=== PATIENT | male | born 1950 | race Caucasian/White ===

== ENCOUNTER 2017-09-22 05:19 | Inpatient (IN) | payer MEDICARE ==
[2017-09-22] MEDS ORDERED: Ondansetron HCl/PF 4 MG/2 ML Vial ONE (06:07)
[2017-09-22 06:32] LABS: Anion Gap 16 mmol/L (10-20); BUN (Urea Nitrogen) 20 mg/dL (8.4-25.7); Calc. Creatinine Clearance 0 mL/min (70-130); Calcium 8.9 mg/dL (7.8-10.44); Carbon Dioxide 20 mmol/L (23-31); Chloride 92 mmol/L (98-107); Estimated GFR-MDRD 47; Glucose 87 mg/dL (80-115); Potassium 3.8 mmol/L (3.5-5.1); Sodium 124 mmol/L (136-145)
[2017-09-22] MEDS ORDERED: HYDROmorphone 0.5 MG/0.5 ML SYRINGE ONE (06:32)
[2017-09-22] MEDS ORDERED: Promethazine HCl 25 MG/ML VIAL ONE (07:48)
--- NOTE | 2017-09-22 07:56 | CT ---
CT ABDOMEN WITH CONTRAST CT PELVIS WITH CONTRAST: DATE: 09/22/16 TIME: 0729 HOURS HISTORY: 66-year-old male with diffuse, generalized abdominal pain, and nausea. COMPARISON: 09/20/17. TECHNIQUE: IV injection of iodinated contrast media: 70 mL [id number]. Oral contrast media: Administered. FINDINGS: The right kidney is absent. There are surgical clips in the right retroperitoneum. There are numerous mildly enlarged bilateral paraaortic lymph nodes. No abdominal aortic aneurysm. No free fluid or h[place] e air within the abdominal cavity or pelvic cavity. Lung bases are clear. No major pathology identifi ed involving left kidney, adrenals, pancreas, liver, or spleen. No small bowel dilation. Multiple div erticula throughout the descending colon and sigmoid colon. There is a region of pericolonic mild fat stranding at the junction between the descending colon and sigmoid colon, which has improved since t he previous CT. Urinary bladder is distended, but has thin, normal shepard. Grade I anterolisthesis of L5 on S1 due to bilateral L5 spondylolysis. Appendix is normal, positioned in right upper quadrant of the abdomen secondary to high position of the cecum. IMPRESSION: 1. Improving mild colonic diverticulitis at the junction between the descending and sigmoid colon, i n the left lower quadrant of the abdomen. 2. No evidence of abscess. 3. Status post right nephrectomy. 4. Nonspecific mildly enlarged paraaortic retroperitoneal lymph nodes. 5. Grade I spondylolisthesis at L5-S1 due to bilateral L5 spondylolysis. JNPrachi POS: CB
[2017-09-22] MEDS ORDERED: metroNIDAZOLE 500 MG/100 ML BAG ONE (08:15)
--- NOTE | 2017-09-22 10:06 | HP ---
PRIMARY CARE PHYSICIAN: Roger Chang M.D. REASON FOR ADMISSION: Acute diverticulitis, acute kidney failure, hyponatremia, failure of outpatien t therapy. HISTORY OF PRESENT ILLNESS: A 66-year-old male who has history of kidney tumor treated with radiatio n, surgery, and chemotherapy who initially went to [facility] for evaluation of abdo petty pain. Patient reports that abdominal pain started on , which was lower abdominal in na ture, crampy in nature, 8/10 in intensity, which was gradually getting worse. Before this pain start ed, patient was having constipation. The patient went to see primary care physician on Friday. At t hat time, patient was instructed to come to the ER if abdominal pain gets worse. Patient was not giv en any antibiotic therapy at that time, the patient did not improve at all and he was having worsenin g abdominal pain which was more crampy and more intense about 8/10 in intensity and he was not able t o handle his pain and that is why he went to emergency room on Friday. At that time, the patient h ad CT of the abdomen and pelvis and patient was given antibiotic therapy with Cipro and Flagyl for di verticulitis. After that, patient continued to have severe abdominal pain. He was not able to tolerate his oral me dication. He took only few medications, but because of nausea and abdominal pain, he was not tolerat ing any medication and that is why he went again to [facility] where he was given pa in medication with morphine, Toradol, Zofran and subsequently he was transferred to our hospital. Today in our emergency room, patient had repeat CT of the abdomen and pelvis which showing diverticul itis. His sodium is also dropping and he appeared more dehydrated. He was uncomfortable from his lo wer abdominal pain and that is why we decided to keep this patient in the hospital for IV antibiotic therapy. 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 At that time, he was found with diverticulosis. Patient denies any fever or chills. He denies any hematoche valentina, melena or fever. He denies any UTI symptoms. He denies any weight loss or headache, chest pain, palpitation or dizziness. REVIEW OF SYSTEMS: The following complete review of systems was negative, unless otherwise mentioned in the HPI or below: Constitutional: Weight loss or gain, ability to conduct usual activities. Skin: Rash, itching. Eyes: Double vision, pain. ENT/Mouth: Nose bleeding, neck stiffness, pain, tenderness. Cardiovascular: Palpitations, dyspnea on exertion, orthopnea. Respiratory: Shortness of breath, wheezing, cough, hemoptysis, fever or night sweats. Gastrointestinal: Poor appetite, abdominal pain, heartburn, nausea, vomiting, constipation, or diarr hea. Genitourinary: Urgency, frequency, dysuria, nocturia. Musculoskeletal: Pain, swelling. Neurologic/Psychiatric: Anxiety, depression. Allergy/Immunologic: Skin rash, bleeding tendency. Please see my HPI for pertinent positive and negative. All other review of systems reviewed and nega tive except as mentioned in the HPI. ALLERGIES: No known drug allergies. CURRENT HOME MEDICATIONS: Cardizem-CD 120 mg p.o. daily, Prilosec 40 mg p.o. daily, Atarax 10 mg q.6 hourly p.r.n. PAST MEDICAL HISTORY: Hypertension, history of kidney tumor treated with chemoradiation and surgery, gastroesophageal reflux disease, diverticulosis. PAST SURGICAL HISTORY: Tonsillectomy, back surgery, neck surgery, nephrectomy on right side, colonos copy on 08/20/2017, MediPort placement. PAST PSYCHIATRIC HISTORY: Reviewed and negative. SOCIAL HISTORY: Patient is a former smoker. He quit smoking last year in October. He denies any a lcohol abuse. He denies any other illicit drug abuse. He is retired and lives at home. FAMILY HISTORY: No strong family history of premature coronary artery disease, stroke or cancer. EMERGENCY ROOM COURSE: Patient has received Levaquin 750 mg, Flagyl 500 mg, Phenergan 12.5 mg, Dilau did 1 mg, Zofran 8 mg, and IV fluid 1 liter. PHYSICAL EXAMINATION: VITAL SIGNS: On arrival, blood pressure 186/82, pulse 72, respiratory rate 22, temperature 97.8, sat uration 98% on room air, weight 79.3 kilograms. GENERAL: Patient is currently alert, awake, in moderate distress due to abdominal pain. He is restl ess. HEAD: Normocephalic, atraumatic. EYES: Pupils round, reactive to light. Extraocular muscle intact. ENT: Dry mucous membranes, no oral lesions, no pharyngeal erythema, no exudate. NECK: Supple, no JVD, no thyromegaly, no carotid bruit, no meningeal signs of irritation. LUNGS: Clear to auscultation without any rhonchi or rales. CARDIAC: S1, S2 regular. No murmur, no gallop, no rub. ABDOMEN: Diffuse lower abdominal tenderness with guarding, no peritoneal signs, no distention. Sinai l sounds present. No organomegaly, no mass. BACK: Examination unremarkable, no CVA tenderness. EXTREMITIES: Upper extremity passive movements of all joints are normal. Lower extremities: No yane ma. Good peripheral pulsation. SKIN: No skin rash. HEMATOLOGICAL SYSTEM: No lymphadenopathy. PSYCHIATRIC: Normal affect. NEUROLOGIC: Nonfocal examination. IMAGING DATA AND SIGNIFICANT LABORATORY DATA: EKG normal sinus rhythm, normal axis, nonspecific ST-T changes. CT abdomen and pelvis done today as well as I reviewed CT of the abdomen and pelvis which was done on Friday showing colonic diverticulitis at the junction of the descending and sigmoid col on, grade I anterolisthesis of L5-S1, colonic diverticulosis. Chest x-ray based on my review, no acu te cardiopulmonary process. CBC: WBC 6.9, hemoglobin 13.2, platelets 175. BMP: Sodium 144, potass ium 3.8, chloride 92, BUN 20, creatinine 1.48, calcium 8.9, lactic acid 2.4. LFT: AST 15, ALT 13, a lkaline phosphatase 104, albumin 4.0, lipase 27. Urinalysis unremarkable. ASSESSMENT AND PLAN/IMPRESSION: 1. Acute diverticulitis of descending and sigmoid colon. The patient has diffuse lower abdominal di scomfort. His pain is unbearable and he is not able to handle his pain and he is not tolerating p.o. medication and that is why he will require admission. We will continue Levaquin 500 mg IV daily and Flagyl 500 mg IV q.8 hourly, probiotics, Florastor 250 mg p.o. daily. We will control his pain with morphine 4 mg every 3 hourly p.r.n. basis. Patient already had a colonoscopy in 08/2017. We will n otify Dr. Tineo about the patient's admission. 2. Failure of outpatient therapy. This patient is not able to take Cipro and Flagyl orally because of nausea and he has failure of treatment, he has worsening of abdominal pain and that is why he will require inpatient hospitalization. 3. Hyponatremia and hypochloremia with mild metabolic acidosis, likely due to dehydration and inabil ity to tolerate p.o. Patient did not have any oral intake since Friday, Friday, and that is why he will require IV fluid for hydration and will continue with NS 125 mL per hour and we will monitor el ectrolytes and labs. 4. Lactic acidosis, resolved, likely due to dehydration. 5. Acute kidney failure. The patient will be given IV fluid with NS at 125 mL per hour and will rep eat BMP tomorrow. 6. Hypertension. We will continue Cardizem-CD 120 mg p.o. daily. 7. Gastroesophageal reflux disease. We will continue Protonix 40 mg IV daily. 8. History of renal cell carcinoma treated with nephrectomy, chemotherapy. 9. Deep venous thrombosis prophylaxis, heparin 5000 units subcu twice daily. 10. Gastrointestinal prophylaxis, Protonix 40 mg IV daily. 11. Code status: The patient is FULL CODE. Patient does not have a surrogate decision maker. Disposition plan based on clinical course. We are expecting patient's stay in the hospital more than 2 midnights. Plan of care discussed with the patient and his family member at bedside in the emerge ncy room.
[2017-09-22] MEDS ORDERED: Senokot 8.6 MG TAB PO PRN (10:10)
[2017-09-22] MEDS ORDERED: hydrALAZINE 20 MG/ML VIAL SLOW IVP PRN (10:10)
[2017-09-22] MEDS ORDERED: Loratadine 10 MG TAB PO PRN (10:10)
[2017-09-22] MEDS ORDERED: Ondansetron ODT 4 MG TAB PO PRN (10:10)
[2017-09-22] MEDS ORDERED: Chloraseptic Spray 180 ml Bottle PO PRN (10:10)
[2017-09-22] MEDS ORDERED: Mag-Al 1200 mg/1200 mg/30 ML UDCUP PO PRN (10:10)
[2017-09-22] MEDS ORDERED: Eucerin (Mineral Oil/Petrolatum,White) 30 gm Jar TOP PRN (10:10)
[2017-09-22] MEDS ORDERED: Sodium Chloride 0.65% Nasal 44 ML BOT EA NARE PRN (10:10)
[2017-09-22] MEDS ORDERED: Diabetic Tussin 200 MG/10 ML UDCUP PO PRN (10:10)
[2017-09-22] MEDS ORDERED: Loperamide HCl 2 MG CAP PO PRN (10:10)
[2017-09-22] MEDS ORDERED: Artificial Tears 18 DROP/0.9 ML EA EYE PRN (10:10)
[2017-09-22] MEDS ORDERED: Labetalol HCl 100 MG/20 ML VIAL SLOW IVP PRN (10:10)
[2017-09-22] MEDS ORDERED: Milk Of Magnesia 30 ML UDCUP PO PRN (10:10)
[2017-09-22] MEDS ORDERED: Zolpidem Tartrate 5 MG TAB PO PRN (10:10)
[2017-09-22 10:11] VITALS: BMI 26.6
[2017-09-22] MEDS ORDERED: Morphine 5 MG/ML SYRINGE SLOW IVP PRN (11:29)
[2017-09-22] MEDS: Sodium Chloride 0.9% 1,000 ML IV SCH ×2 (12:23→19:41)
[2017-09-22] MEDS: HYDROcodone/Acetaminophen 10/325 mg Tablet PO PRN ×2 (14:00→19:38)
[2017-09-22] MEDS: metroNIDAZOLE 500 MG in Premix Bag 1 BAG IVPB SCH ×2 (16:08→23:31)
[2017-09-22] MEDS ORDERED: ISOVUE-370 76%-LOCM 1 ML ONE (16:19)
[2017-09-22] MEDS: Lorazepam 1 MG TAB PO PRN (16:59)
[2017-09-22] MEDS: Heparin 5,000 UNITS/ML VIAL SC SCH (19:37)
[2017-09-22] MEDS: Ondansetron HCl/PF 4 MG/2 ML Vial IVP PRN (19:40)
[2017-09-23] MEDS: Lorazepam 1 MG TAB PO PRN (02:41)
[2017-09-23] MEDS: HYDROcodone/Acetaminophen 10/325 mg Tablet PO PRN ×2 (02:41→16:50)
[2017-09-23] MEDS: Ondansetron HCl/PF 4 MG/2 ML Vial IVP PRN (02:41)
[2017-09-23] MEDS: Sodium Chloride 0.9% 1,000 ML IV SCH ×3 (04:56→21:01)
[2017-09-23 05:37] LABS: #Basophils 0.1 thou/uL (0.0-0.2); #Eosinphils 0.2 thou/uL (0.0-0.7); #Lymphocytes 1.2 thou/uL (1.20-3.40); #Monocytes 0.7 thou/uL (0.11-0.59); #Neutrophils 3.7 thou/uL (1.40-6.50); %Basophils 1.1 % (0.0-1.0); %Eosinophils 2.9 % (0.0-10.0); %Lymphocytes 20.9 % (21.0-51.0); Hemoglobin 13.4 g/dL (14.0-18.0); Mean Corpuscular HGB CONC 32.7 g/dL (32.0-36.0); Mean Corpuscular Hemoglobin 30.8 pg (27.0-31.0); Mean Corpuscular Volume 94.2 fl (80.0-94.0); Mean Platelet Volume 6.8 fL (7.4-10.4); Platelet Count 186 thou/uL (130-400); RBC Distribution Width 12.4 % (11.5-14.5); Red Blood Cell (RBC) Count 4.35 mill/uL (4.70-6.10); White Blood Cell (WBC) Count 5.9 thou/uL (4.8-10.8)
[2017-09-23 06:00] LABS: Anion Gap 15 mmol/L (10-20); BUN (Urea Nitrogen) 14 mg/dL (8.4-25.7); Calc. Creatinine Clearance 57 mL/min (70-130); Calcium 8.8 mg/dL (7.8-10.44); Carbon Dioxide 20 mmol/L (23-31); Chloride 100 mmol/L (98-107); Estimated GFR-MDRD 51; Glucose 65 mg/dL (80-115); Potassium 4.3 mmol/L (3.5-5.1); Sodium 131 mmol/L (136-145)
[2017-09-23] MEDS: metroNIDAZOLE 500 MG in Premix Bag 1 BAG IVPB SCH ×2 (08:16→16:50)
[2017-09-23] MEDS: Saccharomyces boulardii 250 MG CAP PO SCH (08:19)
[2017-09-23] MEDS: Heparin 5,000 UNITS/ML VIAL SC SCH ×2 (08:21→20:11)
[2017-09-23] MEDS ORDERED: Labetalol HCl 100 MG/20 ML VIAL SLOW IVP PRN (08:36)
[2017-09-23] MEDS ORDERED: OXcarbazepine 300 MG TAB PO SCH (13:00)
--- NOTE | 2017-09-23 15:27 | CON ---
DATE OF CONSULTATION: 09/23/2017 CHIEF COMPLAINT: Abdominal pain. HISTORY OF PRESENT ILLNESS: Mr. Prado is a 66-year-old man, who presented with abdominal pain. He s tarted with severe cramping left lower quadrant to bilateral lower abdominal, severe pain on Friday. He went to the emergency room and a CT scan performed and was started on Cipro and metronidazole. Gena crowell did not tolerate the oral antibiotics well and the symptoms continued and he moved back to the [facility] due to worsening pain on Friday, 2 days ago. At that point, a CT was repeated and again s howed signs of diverticulitis near the descending and sigmoid colon with mild fat stranding. He just had a colonoscopy on 08/20/[address] Tineo. This showed severe diverticulosis of the sigmoid colon with narrowing of the colon around the diverticular segment. The patient reports starting with prob lems with chronic constipation 5 or 6 years ago. He has had no prior diverticulitis attacks. He had started on MiraLax daily over the last several years and has done well. He was diagnosed with urete ral cancer and treated with surgery and chemotherapy for that. He developed some urgency of bowel mo vements after eating while on chemotherapy, but he did remain on the MiraLax of that time. Back in 09/2016, the constipation again worsened. He seemed to not respond well to the MiraLax at this point and therefore, he underwent colonoscopy by Dr. Tineo. He was given a trial of Linzess for a couple we eks, which he reports did not work. He took Amitiza for a couple weeks, which he reports did not wor k. After that he started taking Milk of Magnesia every couple of days. He followed up in the office . He was advised to increase Milk of Magnesia 2 every day. He then presented with this episode of d iverticulitis. PAST MEDICAL HISTORY: Ureteral cancer, hypertension, gastroesophageal reflux disease, diverticulosis , and chronic constipation. PAST SURGICAL HISTORY: Tonsillectomy, back surgery, neck surgery, and right nephrectomy, and colonos copy on 08/20/2017. SOCIAL HISTORY: He quit smoking a year ago. No alcohol or drugs. FAMILY HISTORY: Negative for GI malignancy. ALLERGIES: No known drug allergies. MEDICATIONS: Prior to admission, Atarax, Cardizem, Prilosec. Currently in the hospital, he is on le vofloxacin and metronidazole IV. Some Florastor and diltiazem, and oxcarbazepine. PHYSICAL EXAMINATION: VITAL SIGNS: Temperature 97.7, pulse 54, blood pressure 175/75. GENERAL: He is in no acute distress. He is awake and alert. HEENT: Eyes have no scleral icterus. Oropharynx is clear, without lesions. NECK: No cervical or supraclavicular lymphadenopathy. LUNGS: Clear to auscultation bilaterally. HEART: Regular rate and rhythm. ABDOMEN: Soft. He is tender to light palpation to the lower abdomen, but he is not guarding. Bowel sounds are present. EXTREMITIES: No lower extremity edema. NEUROLOGIC: Cranial nerves are grossly intact. LABORATORY DATA: White blood cell count 5.9, hemoglobin 13.4, platelets 186. Creatinine 1.39 down from 1.48 yesterday. IMPRESSION: 1. Acute diverticulitis. This is his first episode of acute diverticulitis. His pain is improved t nga compared to yesterday since starting IV antibiotics. 2. Chronic constipation, which has been responding poorly to multiple laxatives over the last couple of months. If his pain continues to improve, then restart the MiraLax tomorrow. He is tolerating s ome clear liquids today. 3. Colonoscopy on 08/20/2017 showed narrowing of the colon in the peridiverticular segment. RECOMMENDATIONS: 1. Continue IV antibiotics with levofloxacin and metronidazole. 2. If his pain continues to improve tomorrow and he is tolerating clear liquids well then we can res tart MiraLax daily. 3. He will likely require at least a couple more days of IV antibiotics.
--- NOTE | 2017-09-23 17:54 | PDOC.PN ---
- Subjective Encounter Start Date: 09/23/17 Encounter Start Time: 13:00 Patient seen and examined. Abd pain improving. No N/V. No overnight events - Objective Resuscitation Status: Resuscitation Status FULL:Full Resuscitation MAR Reviewed: Yes Vital Signs & Weight: Vital Signs (12 hours) Temp Pulse Resp BP BP Pulse Ox 09/23/17 12:07 97.7 F 54 L 16 175/75 H 100 09/23/17 08:16 73 180/80 H 09/23/17 08:00 97.5 F L 73 16 100 09/23/17 07:43 97.5 F L 53 L 16 180/80 H 100 Weight Weight 175 lb 9.6 oz I&O: 09/22/17 09/23/17 09/24/17 06:59 06:59 06:59 Intake Total 3695 480 Balance 3695 480 Result Diagrams: 09/23/17 04:26 09/23/17 04:26 Phys Exam - Physical Examination Constitutional: NAD Respiratory: no wheezing, no rhonchi Cardiovascular: RRR, no rub Gastrointestinal: soft, no distention, positive bowel sounds mild LLQ tenderness Musculoskeletal: no edema Neurological: moves all 4 limbs Dx/Plan - Plan PT/OT, DVT proph w/heparin, DVT proph w/SCDs IMPRESSION: 1. Acute Diverticulitis 2. Hyponatremia 3. HTN 4. CKD 3 5. GERD 6. h/o Renal cell carcinoma/ Chronic Anemia/Chronic constipation/ Lactic acidosis - resolved PLAN: * Cont Atbx * Change IVF rate to 75 ml/hr * AM labs * Consult GI * Resume home meds including Cardizem * Cont to monitor * Add Colace Review of Systems - Review of Systems Respiratory: negative: Cough, Dry, Shortness of Breath, Hemoptysis, SOB with Excertion, Pleuritic Pain, Sputum, Wheezing Cardiovascular: negative: chest pain, palpitations, orthopnea, paroxysmal nocturnal dyspnea, edema, light headedness - Medications/Allergies Allergies/Adverse Reactions: Allergies Allergy/AdvReac Type Severity Reaction Status Date / Time No Known Allergies Allergy Verified 12/09/16 12:23 Medications: Current Medications Acetaminophen (Tylenol) 650 mg PO Q4H PRN PRN Reason: Headache/Fever or Pain Hydrocodone Bitart/Acetaminophen ([place] 10/325) 1 tab PO Q4H PRN PRN Reason: Moderate Pain (4-6) Last Admin: 09/23/17 16:50 Dose: 1 tab Al Hydroxide/Mg Hydroxide (Maalox) 30 ml PO Q6H PRN PRN Reason: Heartburn or Indigestion Last Admin: 09/22/17 16:06 Dose: 30 ml Artificial Tears (Tears Naturale) 0 drop EA EYE PRN PRN PRN Reason: Dry Eyes Clonazepam (Klonopin) 0.5 mg PO HS PRN PRN Reason: RLS Clonidine (Catapres) 0.1 mg PO Q4H PRN PRN Reason: Systolic BP > 180 Diltiazem HCl (Cardizem Cd) 120 mg PO DAILY [facility] Last Admin: 09/23/17 08:16 Dose: 120 mg Guaifenesin (Robitussin Sf) 200 mg PO Q4H PRN PRN Reason: Cough Heparin Sodium (Porcine) (Heparin) 5,000 units SC BID [facility] Last Admin: 09/23/17 08:21 Dose: 5,000 units Hydralazine HCl (Apresoline) 10 mg SLOW IVP Q4H PRN PRN Reason: Systolic BP > 180 Levofloxacin 500 mg/ Device 100 mls @ 100 mls/hr IVPB 0900 [facility] Last Admin: 09/23/17 09:34 Dose: 100 mls Metronidazole 500 mg/ Device 100 mls @ 100 mls/hr IVPB 0000,0800,1600 [facility] Last Admin: 09/23/17 16:50 Dose: 100 mls Sodium Chloride (Normal Saline 0.9%) 1,000 mls @ 75 mls/hr IV .[id number] [facility] Last Admin: 09/23/17 09:38 Dose: 1,000 mls Labetalol HCl (Normodyne) 10 mg SLOW IVP Q4H PRN PRN Reason: Systolic BP > 180 Loperamide HCl (Imodium) 2 mg PO PRN PRN PRN Reason: Diarrhea/Loose Stools Last Admin: 09/22/17 16:06 Dose: 2 mg Loratadine (Claritin) 10 mg PO DAILYPRN PRN PRN Reason: Sinus Symptoms Lorazepam (Ativan) 1 mg PO Q4H PRN PRN Reason: Anxiety/Agitation Last Admin: 09/23/17 02:41 Dose: 1 mg Magnesium Hydroxide (Milk Of Magnesium) 30 ml PO DAILYPRN PRN PRN Reason: Constipation Mineral Oil/White Petrolatum (Eucerin Cream) 0 gm TOP BIDPRN PRN PRN Reason: Dry Skin Morphine Sulfate (Morphine) 4 mg SLOW IVP Q3H PRN PRN Reason: Pain Ondansetron HCl (Zofran Odt) 4 mg PO Q6H PRN PRN Reason: Nausea/Vomiting Ondansetron HCl (Zofran) 4 mg IVP Q6H PRN PRN Reason: Nausea/Vomiting Last Admin: 09/23/17 02:41 Dose: 4 mg Oxcarbazepine (Trileptal) 600 mg PO QAM [facility] Oxcarbazepine (Trileptal) 450 mg PO QPM [facility] Pantoprazole Sodium (Protonix) 40 mg PO DAILY [facility] Last Admin: 09/23/17 08:16 Dose: 40 mg Phenol (Chloraseptic Black 180 Ml Bot) 0 ml PO PRN PRN PRN Reason: Sore Throat Saccharomyces Boulardii (Florastor) 250 mg PO DAILY [facility] Last Admin: 09/23/17 08:19 Dose: 250 mg Senna (Senokot) 2 tab PO HSPRN PRN PRN Reason: Constipation Sodium Chloride ([place] Nasal Black 0.65%) 0 ml EA NARE QIDPRN PRN PRN Reason: Nasal Congestion Zolpidem Tartrate (Ambien) 5 mg PO HSPRN PRN PRN Reason: Insomnia Last Admin: 09/22/17 19:40 Dose: 5 mg
[2017-09-23] MEDS: OXcarbazepine 300 MG TAB PO SCH (20:11)
[2017-09-23] MEDS: Docusate 100 MG CAP PO SCH (20:11)
[2017-09-24] MEDS: Sodium Chloride 0.9% 1,000 ML IV SCH ×2 (00:07→16:12)
[2017-09-24] MEDS: metroNIDAZOLE 500 MG in Premix Bag 1 BAG IVPB SCH ×3 (00:07→16:12)
[2017-09-24] MEDS: cloNIDine 0.1 MG TAB PO PRN ×2 (08:22→11:32)
[2017-09-24] MEDS: Docusate 100 MG CAP PO SCH ×2 (08:22→20:10)
[2017-09-24] MEDS: Saccharomyces boulardii 250 MG CAP PO SCH (08:22)
[2017-09-24] MEDS: Heparin 5,000 UNITS/ML VIAL SC SCH ×2 (08:25→20:10)
[2017-09-24 09:22] LABS: #Eosinphils 0.1 thou/uL (0.0-0.7); #Monocytes 0.5 thou/uL (0.11-0.59); #Neutrophils 4.9 thou/uL (1.40-6.50); %Basophils 0.6 % (0.0-1.0); %Eosinophils 1.7 % (0.0-10.0); %Lymphocytes 15.8 % (21.0-51.0); %Monocytes 7.8 % (0.0-10.0); %Neutrophils 74.2 % (42.0-75.0); Hemoglobin 14.4 g/dL (14.0-18.0); Mean Corpuscular HGB CONC 33.1 g/dL (32.0-36.0); Mean Corpuscular Hemoglobin 31.7 pg (27.0-31.0); Mean Corpuscular Volume 95.7 fl (80.0-94.0); Mean Platelet Volume 6.6 fL (7.4-10.4); Platelet Count 192 thou/uL (130-400); RBC Distribution Width 12.7 % (11.5-14.5); Red Blood Cell (RBC) Count 4.53 mill/uL (4.70-6.10); White Blood Cell (WBC) Count 6.6 thou/uL (4.8-10.8)
[2017-09-24 09:41] LABS: Albumin 4.3 g/dL (3.4-4.8); Anion Gap 15 mmol/L (10-20); BUN (Urea Nitrogen) 10 mg/dL (8.4-25.7); BUN/Creatinine Ratio 6.94; Calc. Creatinine Clearance 55 mL/min (70-130); Calcium 8.9 mg/dL (7.8-10.44); Carbon Dioxide 19 mmol/L (23-31); Chloride 105 mmol/L (98-107); Estimated GFR-MDRD 49; Glucose 150 mg/dL (80-115); Magnesium 2.2 mg/dL (1.6-2.6); Phosphorus 2.8 mg/dL (2.3-4.7); Potassium 4.1 mmol/L (3.5-5.1); Sodium 135 mmol/L (136-145)
[2017-09-24] MEDS: OXcarbazepine 300 MG TAB PO SCH ×2 (10:03→20:27)
[2017-09-24] MEDS: clonazePAM 0.5 MG TAB PO PRN (20:28)
--- NOTE | 2017-09-24 21:16 | PDOC.PN ---
- Subjective Encounter Start Date: 09/24/17 Encounter Start Time: 10:00 Patient seen and examined. Abd pain improving. No overnight events - Objective Resuscitation Status: Resuscitation Status FULL:Full Resuscitation MAR Reviewed: Yes Vital Signs & Weight: Vital Signs (12 hours) Temp Pulse Resp BP BP Pulse Ox 09/24/17 20:00 97.5 F L 56 L 18 98 09/24/17 19:37 97.5 F L 56 L 18 136/76 100 09/24/17 15:32 98.0 F 50 L 16 143/65 H 100 09/24/17 11:32 188/77 H 09/24/17 11:21 97.8 F 52 L 20 188/77 H 100 Weight Weight 175 lb 9.6 oz I&O: 09/23/17 09/24/17 09/25/17 06:59 06:59 06:59 Intake Total 3695 1880 1690 Output Total 3 Balance 3695 1880 1686 Result Diagrams: 09/25/17 04:30 09/25/17 04:30 Phys Exam - Physical Examination Constitutional: NAD Respiratory: no wheezing, no rhonchi Cardiovascular: RRR, no rub Gastrointestinal: soft, no distention, positive bowel sounds mild tenderness Musculoskeletal: no edema Neurological: moves all 4 limbs Dx/Plan - Plan DVT proph w/SCDs IMPRESSION: 1. Acute Diverticulitis 2. Hyponatremia 3. HTN 4. CKD 3 5. GERD 6. h/o Renal cell carcinoma/ Chronic Anemia/Chronic constipation/ Lactic acidosis - resolved PLAN: * Cont Atbx * Change IVF rate to 50 ml/hr * GI following * Cont current meds as below * Cont to monitor Review of Systems - Review of Systems Cardiovascular: negative: chest pain, palpitations, orthopnea, paroxysmal nocturnal dyspnea, edema, light headedness, other Gastrointestinal: Abdominal Pain. negative: Nausea, Vomiting, Diarrhea, Constipation, Melena, Hematochezia - Medications/Allergies Allergies/Adverse Reactions: Allergies Allergy/AdvReac Type Severity Reaction Status Date / Time No Known Allergies Allergy Verified 12/09/16 12:23 Medications: Current Medications Acetaminophen (Tylenol) 650 mg PO Q4H PRN PRN Reason: Headache/Fever or Pain Hydrocodone Bitart/Acetaminophen ([place] 10/325) 1 tab PO Q4H PRN PRN Reason: Moderate Pain (4-6) Last Admin: 09/23/17 16:50 Dose: 1 tab Al Hydroxide/Mg Hydroxide (Maalox) 30 ml PO Q6H PRN PRN Reason: Heartburn or Indigestion Last Admin: 09/22/17 16:06 Dose: 30 ml Artificial Tears (Tears Naturale) 0 drop EA EYE PRN PRN PRN Reason: Dry Eyes Clonazepam (Klonopin) 0.5 mg PO HS PRN PRN Reason: RLS Last Admin: 09/24/17 20:28 Dose: 0.5 mg Clonidine (Catapres) 0.1 mg PO Q4H PRN PRN Reason: Systolic BP > 180 Last Admin: 09/24/17 11:32 Dose: 0.1 mg Diltiazem HCl (Cardizem Cd) 120 mg PO DAILY [facility] Last Admin: 09/24/17 08:21 Dose: 120 mg Docusate Sodium (Colace) 100 mg PO BID [facility] Last Admin: 09/24/17 20:10 Dose: Not Given Guaifenesin (Robitussin Sf) 200 mg PO Q4H PRN PRN Reason: Cough Heparin Sodium (Porcine) (Heparin) 5,000 units SC BID [facility] Last Admin: 09/24/17 20:10 Dose: Not Given Hydralazine HCl (Apresoline) 10 mg SLOW IVP Q4H PRN PRN Reason: Systolic BP > 180 Levofloxacin 500 mg/ Device 100 mls @ 100 mls/hr IVPB 0900 [facility] Last Admin: 09/24/17 10:04 Dose: 100 mls Metronidazole 500 mg/ Device 100 mls @ 100 mls/hr IVPB 0000,0800,1600 [facility] Last Admin: 09/24/17 16:12 Dose: 100 mls Sodium Chloride (Normal Saline 0.9%) 1,000 mls @ 75 mls/hr IV .[id number] [facility] Last Admin: 09/24/17 16:12 Dose: 1,000 mls Labetalol HCl (Normodyne) 10 mg SLOW IVP Q4H PRN PRN Reason: Systolic BP > 180 Loperamide HCl (Imodium) 2 mg PO PRN PRN PRN Reason: Diarrhea/Loose Stools Last Admin: 09/22/17 16:06 Dose: 2 mg Loratadine (Claritin) 10 mg PO DAILYPRN PRN PRN Reason: Sinus Symptoms Magnesium Hydroxide (Milk Of Magnesium) 30 ml PO DAILYPRN PRN PRN Reason: Constipation Mineral Oil/White Petrolatum (Eucerin Cream) 0 gm TOP BIDPRN PRN PRN Reason: Dry Skin Ondansetron HCl (Zofran Odt) 4 mg PO Q6H PRN PRN Reason: Nausea/Vomiting Ondansetron HCl (Zofran) 4 mg IVP Q6H PRN PRN Reason: Nausea/Vomiting Last Admin: 09/23/17 02:41 Dose: 4 mg Oxcarbazepine (Trileptal) 600 mg PO QAM [facility] Last Admin: 09/24/17 10:03 Dose: 600 mg Oxcarbazepine (Trileptal) 450 mg PO QPM [facility] Last Admin: 09/24/17 20:27 Dose: 450 mg Pantoprazole Sodium (Protonix) 40 mg PO DAILY [facility] Last Admin: 09/24/17 08:22 Dose: 40 mg Phenol (Chloraseptic [place] 180 Ml Bot) 0 ml PO PRN PRN PRN Reason: Sore Throat Saccharomyces Boulardii (Florastor) 250 mg PO DAILY [facility] Last Admin: 09/24/17 08:22 Dose: 250 mg Senna (Senokot) 2 tab PO HSPRN PRN PRN Reason: Constipation Sodium Chloride ([place] Nasal [place] 0.65%) 0 ml EA NARE QIDPRN PRN PRN Reason: Nasal Congestion
[2017-09-25] MEDS: metroNIDAZOLE 500 MG in Premix Bag 1 BAG IVPB SCH ×3 (00:01→16:25)
[2017-09-25 05:39] LABS: #Eosinphils 0.2 thou/uL (0.0-0.7); #Lymphocytes 1.3 thou/uL (1.20-3.40); #Monocytes 0.8 thou/uL (0.11-0.59); #Neutrophils 4.1 thou/uL (1.40-6.50); %Basophils 0.5 % (0.0-1.0); %Eosinophils 2.7 % (0.0-10.0); %Lymphocytes 20.5 % (21.0-51.0); %Monocytes 12.5 % (0.0-10.0); %Neutrophils 63.8 % (42.0-75.0); Hemoglobin 13.1 g/dL (14.0-18.0); Mean Corpuscular HGB CONC 33.1 g/dL (32.0-36.0); Mean Corpuscular Hemoglobin 31.5 pg (27.0-31.0); Mean Corpuscular Volume 95.2 fl (80.0-94.0); Mean Platelet Volume 6.8 fL (7.4-10.4); Platelet Count 194 thou/uL (130-400); RBC Distribution Width 12.6 % (11.5-14.5); Red Blood Cell (RBC) Count 4.17 mill/uL (4.70-6.10); White Blood Cell (WBC) Count 6.5 thou/uL (4.8-10.8)
[2017-09-25 05:49] LABS: Albumin 4.1 g/dL (3.4-4.8); Anion Gap 14 mmol/L (10-20); BUN (Urea Nitrogen) 8 mg/dL (8.4-25.7); BUN/Creatinine Ratio 6.78; Calc. Creatinine Clearance 68 mL/min (70-130); Carbon Dioxide 23 mmol/L (23-31); Chloride 103 mmol/L (98-107); Estimated GFR-MDRD 61; Glucose 88 mg/dL (80-115); Magnesium 1.9 mg/dL (1.6-2.6); Phosphorus 2.9 mg/dL (2.3-4.7); Sodium 136 mmol/L (136-145)
[2017-09-25] MEDS: Saccharomyces boulardii 250 MG CAP PO SCH (07:53)
[2017-09-25] MEDS: Heparin 5,000 UNITS/ML VIAL SC SCH (07:53)
[2017-09-25] MEDS: Sodium Chloride 0.9% 1,000 ML IV SCH ×2 (07:57→14:02)
[2017-09-25] MEDS: Docusate 100 MG CAP PO SCH ×2 (08:00→20:07)
[2017-09-25] MEDS: OXcarbazepine 300 MG TAB PO SCH ×2 (09:11→20:42)
--- NOTE | 2017-09-25 12:49 | PDOC.PN ---
- Subjective Encounter Start Date: 09/25/17 Encounter Start Time: 11:30 Patient seen and examined. No new complaints. No overnight events. Abd pain improving. No N/V. Tolerating clear liqd diet. Patient requesting diet advancing. - Objective Resuscitation Status: Resuscitation Status FULL:Full Resuscitation MAR Reviewed: Yes Vital Signs & Weight: Vital Signs (12 hours) Temp Pulse Resp BP Pulse Ox 09/25/17 08:00 97.7 F 49 L 18 100 09/25/17 07:36 97.7 F 49 L 18 171/75 H 100 09/25/17 06:12 97.5 F L 53 L 18 149/77 H 100 Weight Weight 175 lb 9.6 oz I&O: 09/24/17 09/25/17 09/26/17 06:59 06:59 06:59 Intake Total 1880 2750 Output Total 3 Balance 1880 2747 Result Diagrams: 09/25/17 04:30 09/25/17 04:30 Phys Exam - Physical Examination Constitutional: NAD Respiratory: no wheezing, no rhonchi Cardiovascular: RRR, no rub Gastrointestinal: soft, positive bowel sounds mild LLQ tenderness, No rebound/guarding/CVA tend. Musculoskeletal: no edema Neurological: moves all 4 limbs Dx/Plan - Plan DVT proph w/heparin, DVT proph w/SCDs IMPRESSION: 1. Acute Diverticulitis - improving 2. Hyponatremia - improving 3. HTN 4. RANDA on CKD 2 - improving 5. GERD 6. h/o Renal cell carcinoma/ Chronic Anemia/Chronic constipation/Anxiety/ Lactic acidosis - resolved PLAN: * Cont IV Atbx * Cont IVF rate to 50 ml/hr - may dc later today if needed * GI following * Cont current meds as below * Cont to monitor * DC in AM if stable * Advance diet to low residue. Review of Systems - Review of Systems Respiratory: negative: Cough, Dry, Shortness of Breath, Hemoptysis, SOB with Excertion, Pleuritic Pain, Sputum, Wheezing Cardiovascular: negative: chest pain, palpitations, orthopnea, paroxysmal nocturnal dyspnea, edema, light headedness Genitourinary: negative: Dysuria, Frequency, Incontinence, Hematuria, Retention - Medications/Allergies Allergies/Adverse Reactions: Allergies Allergy/AdvReac Type Severity Reaction Status Date / Time No Known Allergies Allergy Verified 12/09/16 12:23 Medications: Current Medications Acetaminophen (Tylenol) 650 mg PO Q4H PRN PRN Reason: Headache/Fever or Pain Hydrocodone Bitart/Acetaminophen ([place] 10/325) 1 tab PO Q4H PRN PRN Reason: Moderate Pain (4-6) Last Admin: 09/23/17 16:50 Dose: 1 tab Al Hydroxide/Mg Hydroxide (Maalox) 30 ml PO Q6H PRN PRN Reason: Heartburn or Indigestion Last Admin: 09/22/17 16:06 Dose: 30 ml Artificial Tears (Tears Naturale) 0 drop EA EYE PRN PRN PRN Reason: Dry Eyes Clonazepam (Klonopin) 0.5 mg PO HS PRN PRN Reason: RLS Last Admin: 09/24/17 20:28 Dose: 0.5 mg Clonidine (Catapres) 0.1 mg PO Q4H PRN PRN Reason: Systolic BP > 180 Last Admin: 09/24/17 11:32 Dose: 0.1 mg Diltiazem HCl (Cardizem Cd) 120 mg PO DAILY [facility] Last Admin: 09/24/17 08:21 Dose: 120 mg Docusate Sodium (Colace) 100 mg PO BID [facility] Last Admin: 09/25/17 08:00 Dose: 100 mg Guaifenesin (Robitussin Sf) 200 mg PO Q4H PRN PRN Reason: Cough Hydralazine HCl (Apresoline) 10 mg SLOW IVP Q4H PRN PRN Reason: Systolic BP > 180 Levofloxacin 500 mg/ Device 100 mls @ 100 mls/hr IVPB 0900 [facility] Last Admin: 09/25/17 09:14 Dose: 100 mls Metronidazole 500 mg/ Device 100 mls @ 100 mls/hr IVPB 0000,0800,1600 [facility] Last Admin: 09/25/17 07:52 Dose: 100 mls Sodium Chloride (Normal Saline 0.9%) 1,000 mls @ 50 mls/hr IV .Q20H [facility] Labetalol HCl (Normodyne) 10 mg SLOW IVP Q4H PRN PRN Reason: Systolic BP > 180 Loperamide HCl (Imodium) 2 mg PO PRN PRN PRN Reason: Diarrhea/Loose Stools Last Admin: 09/22/17 16:06 Dose: 2 mg Loratadine (Claritin) 10 mg PO DAILYPRN PRN PRN Reason: Sinus Symptoms Magnesium Hydroxide (Milk Of Magnesium) 30 ml PO DAILYPRN PRN PRN Reason: Constipation Mineral Oil/White Petrolatum (Eucerin Cream) 0 gm TOP BIDPRN PRN PRN Reason: Dry Skin Ondansetron HCl (Zofran Odt) 4 mg PO Q6H PRN PRN Reason: Nausea/Vomiting Ondansetron HCl (Zofran) 4 mg IVP Q6H PRN PRN Reason: Nausea/Vomiting Last Admin: 09/23/17 02:41 Dose: 4 mg Oxcarbazepine (Trileptal) 600 mg PO QAM [facility] Last Admin: 09/25/17 09:11 Dose: 600 mg Oxcarbazepine (Trileptal) 450 mg PO QPM [facility] Last Admin: 09/24/17 20:27 Dose: 450 mg Pantoprazole Sodium (Protonix) 40 mg PO DAILY [facility] Last Admin: 09/25/17 07:53 Dose: 40 mg Phenol (Chloraseptic [place] 180 Ml Bot) 0 ml PO PRN PRN PRN Reason: Sore Throat Saccharomyces Boulardii (Florastor) 250 mg PO DAILY [facility] Last Admin: 09/25/17 07:53 Dose: 250 mg Senna (Senokot) 2 tab PO HSPRN PRN PRN Reason: Constipation Sodium Chloride ([place] Nasal [place] 0.65%) 0 ml EA NARE QIDPRN PRN PRN Reason: Nasal Congestion
[2017-09-25] MEDS: Acetaminophen 325 MG TAB PO PRN (14:00)
--- NOTE | 2017-09-25 18:40 | PRG ---
DATE OF SERVICE: 09/25/2017. SUBJECTIVE: Mr. Prado was feeling better yesterday afternoon and this morning after a few days of IV antibiotics and clear liquid diet. He advanced his diet this afternoon and took some potato soup, b ut since then, he has had increased abdominal pain and diarrhea. He is having urgency with the diarr hea. He is very anxious of these symptoms. He stood up and would lie down multiple times while I wa s talking to him. OBJECTIVE: VITAL SIGNS: Temperature is 97.7, pulse 51, blood pressure 195/78. GENERAL: He is in no acute distress. He is awake and alert. LUNGS: Clear to auscultation bilaterally. HEART: Regular rate and rhythm. ABDOMEN: Tender in the lower abdomen, more so on the right lower quadrant, very slight guarding in t he right lower quadrant focally. EXTREMITIES: Have no lower extremity edema. LABORATORY DATA: His white blood cell count is 6.5. IMPRESSION: Acute diverticulitis. This is slowly improving with IV antibiotics; however, today afte r advancing his diet, he has developed increased pain and diarrhea. He is not ready for discharge ho me yet. RECOMMENDATIONS: 1. We will check stool for Clostridium difficile in light of antibiotic-associated diarrhea. 2. I would continue the IV antibiotics for another day or two depending on his response. He failed oral antibiotics initially, and he has been slow to respond with this acute episode. He does have un derlying colonic narrowing in the sigmoid colon of diverticulitis noted by a previous colonoscopy las t month. This suggests that he does have chronic inflammation in the area and may again slow his rec overy from this acute episode, which is actually his first episode of diverticulitis. 3. After he is finally treated and recovers from this acute diverticulitis attack, then we can add M iraLax back in for treatment of the underlying constipation. He quit responding well to this in [place] ro[place], and he might ultimately require twice daily dosing. He did not respond well to the Linzess or Amitiza. 4. He is on a probiotic with Florastor 250 mg daily.
[2017-09-25] MEDS: clonazePAM 0.5 MG TAB PO PRN (20:41)
[2017-09-26] MEDS: metroNIDAZOLE 500 MG in Premix Bag 1 BAG IVPB SCH ×3 (00:28→15:23)
[2017-09-26] MEDS: Saccharomyces boulardii 250 MG CAP PO SCH (07:51)
[2017-09-26] MEDS: Docusate 100 MG CAP PO SCH ×2 (07:52→19:49)
[2017-09-26] MEDS: Sodium Chloride 0.9% 1,000 ML IV SCH (07:52)
[2017-09-26] MEDS: OXcarbazepine 300 MG TAB PO SCH ×2 (11:42→21:10)
[2017-09-26] MEDS: Cyclobenzaprine 10 MG TAB PO PRN ×2 (11:42→19:48)
--- NOTE | 2017-09-26 11:49 | PDOC.PN ---
- Subjective Encounter Start Date: 09/26/17 Encounter Start Time: 11:00 Patient seen and examined. Had diarrhea yesterday evening. Done ok after eating breakfast today. Abd pain improving. No overnight events. No N/V. - Objective Resuscitation Status: Resuscitation Status FULL:Full Resuscitation MAR Reviewed: Yes Vital Signs & Weight: Vital Signs (12 hours) Temp Pulse Resp BP BP Pulse Ox 09/26/17 08:00 97.8 F 62 20 98 09/26/17 07:51 62 179/76 H 09/26/17 07:08 97.8 F 58 L 20 179/76 H 98 09/26/17 04:00 97.5 F L 74 18 146/78 H 96 Weight Weight 175 lb 9.6 oz I&O: 09/25/17 09/26/17 09/27/17 06:59 06:59 06:59 Intake Total 2750 1660 Output Total 3 Balance 2747 1660 Result Diagrams: 09/25/17 04:30 09/25/17 04:30 Phys Exam - Physical Examination Constitutional: NAD Respiratory: no wheezing, no rhonchi Cardiovascular: RRR, no rub Gastrointestinal: soft, positive bowel sounds mild gen tenderness - luciano LLQ Musculoskeletal: no edema Neurological: moves all 4 limbs Dx/Plan - Plan out of bed/ambulate, DVT proph w/SCDs IMPRESSION: 1. Acute Diverticulitis - improving 2. Hyponatremia - improved 3. HTN 4. RANDA on CKD 2 - improved 5. GERD 6. h/o Renal cell carcinoma/ Chronic Anemia/Chronic constipation/Anxiety/ Lactic acidosis - resolved PLAN: * Cont IV Atbx * Cont IVF @ 50 ml/hr * Dr Fuentes following * Cont current meds as below * Cont to monitor * DC in AM if stable * Cont low residue diet * Cdiff negative Microbiology 09/25/17 19:15 Stool C. difficile [facility] Antigen & Toxins - Final Review of Systems - Review of Systems Respiratory: negative: Cough, Dry, Shortness of Breath, Hemoptysis, SOB with Excertion, Pleuritic Pain, Sputum, Wheezing Cardiovascular: negative: chest pain, palpitations, orthopnea, paroxysmal nocturnal dyspnea, edema, light headedness - Medications/Allergies Allergies/Adverse Reactions: Allergies Allergy/AdvReac Type Severity Reaction Status Date / Time No Known Allergies Allergy Verified 12/09/16 12:23 Medications: Current Medications Acetaminophen (Tylenol) 650 mg PO Q4H PRN PRN Reason: Headache/Fever or Pain Last Admin: 09/25/17 14:00 Dose: 650 mg Hydrocodone Bitart/Acetaminophen ([place] 10/325) 1 tab PO Q4H PRN PRN Reason: Moderate Pain (4-6) Last Admin: 09/23/17 16:50 Dose: 1 tab Al Hydroxide/Mg Hydroxide (Maalox) 30 ml PO Q6H PRN PRN Reason: Heartburn or Indigestion Last Admin: 09/22/17 16:06 Dose: 30 ml Artificial Tears (Tears Naturale) 0 drop EA EYE PRN PRN PRN Reason: Dry Eyes Clonazepam (Klonopin) 0.5 mg PO HS PRN PRN Reason: RLS Last Admin: 09/25/17 20:41 Dose: 0.5 mg Clonidine (Catapres) 0.1 mg PO Q4H PRN PRN Reason: Systolic BP > 180 Last Admin: 09/24/17 11:32 Dose: 0.1 mg Cyclobenzaprine HCl (Flexeril) 5 mg PO TID PRN PRN Reason: Muscle Spasm Stop: 09/28/17 11:31 Last Admin: 09/26/17 11:42 Dose: 5 mg Diltiazem HCl (Cardizem Cd) 120 mg PO DAILY [facility] Last Admin: 09/26/17 07:51 Dose: 120 mg Docusate Sodium (Colace) 100 mg PO BID [facility] Last Admin: 09/26/17 07:52 Dose: Not Given Guaifenesin (Robitussin Sf) 200 mg PO Q4H PRN PRN Reason: Cough Hydralazine HCl (Apresoline) 10 mg SLOW IVP Q4H PRN PRN Reason: Systolic BP > 180 Last Admin: 09/25/17 16:33 Dose: 10 mg Metronidazole 500 mg/ Device 100 mls @ 100 mls/hr IVPB 0000,0800,1600 [facility] Last Admin: 09/26/17 07:47 Dose: 100 mls Sodium Chloride (Normal Saline 0.9%) 1,000 mls @ 50 mls/hr IV .Q20H [facility] Last Admin: 09/26/17 07:52 Dose: Not Given Labetalol HCl (Normodyne) 10 mg SLOW IVP Q4H PRN PRN Reason: Systolic BP > 180 Levofloxacin (Levaquin) 500 mg PO 0600 [facility] Last Admin: 09/26/17 05:02 Dose: 500 mg Loperamide HCl (Imodium) 2 mg PO PRN PRN PRN Reason: Diarrhea/Loose Stools Last Admin: 09/22/17 16:06 Dose: 2 mg Loratadine (Claritin) 10 mg PO DAILYPRN PRN PRN Reason: Sinus Symptoms Magnesium Hydroxide (Milk Of Magnesium) 30 ml PO DAILYPRN PRN PRN Reason: Constipation Mineral Oil/White Petrolatum (Eucerin Cream) 0 gm TOP BIDPRN PRN PRN Reason: Dry Skin Ondansetron HCl (Zofran Odt) 4 mg PO Q6H PRN PRN Reason: Nausea/Vomiting Ondansetron HCl (Zofran) 4 mg IVP Q6H PRN PRN Reason: Nausea/Vomiting Last Admin: 09/23/17 02:41 Dose: 4 mg Oxcarbazepine (Trileptal) 600 mg PO QAM [facility] Last Admin: 09/26/17 11:42 Dose: 600 mg Oxcarbazepine (Trileptal) 450 mg PO QPM [facility] Last Admin: 09/25/17 20:42 Dose: 450 mg Pantoprazole Sodium (Protonix) 40 mg PO DAILY [facility] Last Admin: 09/26/17 07:50 Dose: 40 mg Phenol (Chloraseptic [place] 180 Ml Bot) 0 ml PO PRN PRN PRN Reason: Sore Throat Saccharomyces Boulardii (Florastor) 250 mg PO DAILY [facility] Last Admin: 09/26/17 07:51 Dose: 250 mg Senna (Senokot) 2 tab PO HSPRN PRN PRN Reason: Constipation Sodium Chloride ([place] Nasal [place] 0.65%) 0 ml EA NARE QIDPRN PRN PRN Reason: Nasal Congestion
[2017-09-26] MEDS ORDERED: Polyethylene Glycol 3350 17 GM Packet PO SCH ×2 (13:30)
--- NOTE | 2017-09-26 13:49 | PRG ---
DATE OF SERVICE: 09/26/2017 SUBJECTIVE: His abdominal pain has improved today. He tolerated a solid breakfast and solid lunch t nga. He has had no further diarrhea. He is now more concerned about becoming constipated again. OBJECTIVE: VITAL SIGNS: Temperature 97.8, pulse 62, blood pressure 179/76. GENERAL: He is in no acute distress, awake and alert. LUNGS: Clear to auscultation bilaterally. HEART: Regular rate and rhythm. ABDOMEN: Soft. Mild tenderness throughout the lower abdomen without guarding. Bowel sounds are pre sent. EXTREMITIES: No lower extremity edema. IMPRESSION: 1. Diverticulitis, which failed outpatient antibiotics, now much improved after IV antibiotics and s everal days of clear liquids. He is now tolerating a solid diet and we should be able to transition to oral antibiotics tomorrow and discharge home. 2. He has chronic underlying constipation. His narrowed area in the peridiverticular segment noted by the recent colonoscopy. He is concerned about developing constipation again. We will restart the MiraLax once daily today. If he needs to, then he can increase this to twice daily as an outpatient . RECOMMENDATIONS: 1. Complete a 14-day course total of ciprofloxacin and metronidazole including the IV antibiotics he received during the hospital. 2. Start MiraLax 17 grams daily. This will be increased to twice daily as an outpatient if necessar y. 3. Follow up in GI clinic in a month with Dr. Tineo.
[2017-09-26] MEDS: Acetaminophen 325 MG TAB PO PRN (17:41)
[2017-09-27] MEDS: metroNIDAZOLE 500 MG in Premix Bag 1 BAG IVPB SCH ×2 (00:35→07:59)
[2017-09-27] MEDS: clonazePAM 0.5 MG TAB PO PRN (02:42)
[2017-09-27] MEDS: Sodium Chloride 0.9% 1,000 ML IV SCH (04:15)
[2017-09-27] MEDS: OXcarbazepine 300 MG TAB PO SCH (07:57)
[2017-09-27] MEDS: Docusate 100 MG CAP PO SCH (07:58)
[2017-09-27] MEDS: Saccharomyces boulardii 250 MG CAP PO SCH (07:59)
[2017-09-27] MEDS ORDERED: Polyethylene Glycol 3350 17 GM Packet PO SCH (09:00)
[2017-09-27] MEDS: Cyclobenzaprine 10 MG TAB PO PRN (10:56)
[2017-09-27 14:09] VITALS: BP 161/79; TEMP 98.3
--- NOTE | 2017-09-27 16:37 | DIS ---
DATE OF DISCHARGE: 09/27/2017 DISCHARGE DISPOSITION: Home. FOLLOWUP: 1. Follow up with primary care physician, Dr. Chang, in 1 week. 2. Follow up with Dr. Tineo, Gastroenterology, in 10 days. ALLERGIES: No known drug allergies. The patient was seen and examined on the day of discharge. Denies any new complaints. Abdominal iron n has improved. The patient is tolerating current diet. DISCHARGE MEDICATIONS: 1. Clonazepam as needed. 2. Cardizem CD 120 mg daily. 3. Colace 100 mg b.i.d. 4. Vistaril as needed. 5. Lactulose 30 grams daily. 6. Levaquin 500 mg daily, #9. Side effects of Levaquin discussed. Patient stated understanding. 7. Flagyl 500 mg 3 times daily, #30. Side effects of Flagyl discussed, patient stated understanding . 8. Omeprazole 40 mg daily. 9. Oxcarbazepine 600 mg in the morning and 450 mg at night. 10. MiraLax 17 grams daily. 11. Florastor 250 mg daily, #20. INPATIENT BAGGAGE INSPECTOR: Gastroenterology, Dr. Fuentes. BRIEF HOSPITAL COURSE: The patient is a 66-year-old male with diverticulosis and chronic constipatio n, presented to the hospital with abdominal discomfort. Please refer to the history and physical victor manuel ed 09/22/2017 for further details. The patient was admitted to the hospital with the diagnosis of acute diverticulitis diagnosed on the CT scan in the emergency room. The patient was initially made n.p.o. and was placed on IV fluids and empiric antibiotics. Later on clear liquids were started. The patient was evaluated by Gastroenter ology, Dr. Fuentes. He has done well so far. Dr. Fuentes has cleared the patient for discharge. He henry l complete a total of 14-day course of quinolones with Flagyl. He was advised to take MiraLax on a d aily basis. He will follow up with GI clinic next month. He was also educated on dietary changes fo r Diverticulosis. FINAL DIAGNOSES: 1. Acute diverticulitis. 2. Hyponatremia. His sodium on admission was 124, at discharge was 136. 3. Hypertension. 4. Acute kidney injury on chronic kidney disease, stage 2. His creatinine on admission was 1.48, at discharge was 1.18. 5. Gastroesophageal reflux disease. 6. History of renal cell carcinoma. 7. Chronic anemia. 8. Chronic constipation. 9. Anxiety. 10. Lactic acidosis on admission, resolved. His lactic acid on admission was 2.4, repeat lactic aci d next day was 1.1. Plan of care was discussed with the patient in detail. He stated understanding [facility]IGNIFICANT LABORATORIES: Stool for C. diff was negative.
--- NOTE | 2017-10-11 17:34 | EKG ---
Test Reason : Blood Pressure : / mmHG Vent. Rate : 063 BPM Atrial Rate : 063 BPM P-R Int : 174 ms QRS Dur : 090 ms QT Int : 470 ms P-R-T Axes : 061 -22 036 degrees QTc Int : 480 ms Normal sinus rhythm Prolonged QT Abnormal ECG Confirmed by JACOB SALINAS ([id number]), newspaper or periodical editor YUE AVERY ([id number] on 10/11/2017 5:33:41 PM Referred By: Confirmed By:JACOB SALINAS
== END 2017-09-27 14:18 | disposition home or self-care (01) | DRG 392 ==
LOC: ERS 05:19 → OBSVTOIN 08:48 → 2SW 08:48 → T4-B 15:59
PROVIDERS: ADMIT Internal Medicine; ATTEND Internal Medicine
DX: K57.32 Diverticulitis of large intestine without perforation or abscess without bleeding (principal); N17.9 Acute kidney failure, unspecified; E87.2 Acidosis; E87.1 Hypo-osmolality and hyponatremia; K59.00 Constipation, unspecified; I10 Essential (primary) hypertension; I12.9 Hypertensive chronic kidney disease with stage 1 through stage 4 chronic kidney disease, or unspecified chronic kidney disease; N18.2 Chronic kidney disease, stage 2 (mild); K21.9 Gastro-esophageal reflux disease without esophagitis; F41.9 Anxiety disorder, unspecified; Z87.891 Personal history of nicotine dependence; E87.8 Other disorders of electrolyte and fluid balance, not elsewhere classified; E86.0 Dehydration
CPT/HCPCS: 36415; 36416; 74177; 80048; 80069; 83735; 85025; 87324; 87449; 93005; 96365; 96367; 96375; A4216; G8978-GP-CI; G8979-GP-CI; G8980-GP-CI; J0360; J1170; J1644; J1956; J2405; J2550

== ENCOUNTER 2017-11-23 08:46 | Emergency (ER) | payer MEDICARE ==
[2017-11-23] MEDS ORDERED: Morphine 4 MG/ML VIAL ONE (09:12)
[2017-11-23] MEDS ORDERED: Ondansetron HCl/PF 4 MG/2 ML Vial ONE (09:13)
[2017-11-23 09:19] LABS: Bilirubin Negative (Negative); Blood, Urine Negative (Negative); Clarity CLEAR (Clear); Glucose, Urine (Dipstick) Negative (Negative); Leukocyte Negative (Negative); Nitrite Negative (Negative); Protein, Urine (Dipstick) Negative (Neg-Trace); Specific Gravity, Urine 1.016 (1.002-1.036); Urobilinogen 0.2 mg/dL (0.2-1.0)
[2017-11-23 09:20] LABS: #Eosinphils 0.1 thou/uL (0.0-0.7); #Lymphocytes 1.3 thou/uL (1.20-3.40); #Monocytes 0.6 thou/uL (0.11-0.59); %Basophils 0.4 % (0.0-1.0); %Eosinophils 1.1 % (0.0-10.0); %Lymphocytes 16.1 % (21.0-51.0); %Monocytes 7.8 % (0.0-10.0); %Neutrophils 74.6 % (42.0-75.0); Hemoglobin 13.5 g/dL (14.0-18.0); Mean Corpuscular Hemoglobin 31.5 pg (27.0-31.0); Mean Corpuscular Volume 92.6 fl (80.0-94.0); Mean Platelet Volume 5.8 fL (7.4-10.4); Platelet Count 202 thou/uL (130-400); RBC Distribution Width 13.3 % (11.5-14.5); Red Blood Cell (RBC) Count 4.29 mill/uL (4.70-6.10); White Blood Cell (WBC) Count 8.1 thou/uL (4.8-10.8)
[2017-11-23 09:52] LABS: ALT (SGPT) 13 U/L (8-55); AST (SGOT) 14 U/L (5-34); Albumin 4.2 g/dL (3.4-4.8); Alkaline Phosphatase 112 U/L (40-150); Anion Gap 13 mmol/L (10-20); BUN (Urea Nitrogen) 16 mg/dL (8.4-25.7); Bilirubin, Total 0.5 mg/dL (0.2-1.2); Calc. Creatinine Clearance 0 mL/min (70-130); Calcium 9.1 mg/dL (7.8-10.44); Carbon Dioxide 22 mmol/L (23-31); Chloride 94 mmol/L (98-107); Estimated GFR-MDRD 72; Globulin 2.5 g/dL (2.4-3.5); Glucose 91 mg/dL (80-115); Lipase 12 U/L (8-78); Potassium 4.5 mmol/L (3.5-5.1); Protein, Total 6.7 g/dL (5.8-8.1); Sodium 124 mmol/L (136-145)
[2017-11-23] MEDS ORDERED: metroNIDAZOLE 250 MG TAB ONE ×2 (10:19→10:20)
== END 2017-11-23 10:30 | disposition home or self-care (01) ==
LOC: ERS 08:46
DX: K57.92 Diverticulitis of intestine, part unspecified, without perforation or abscess without bleeding (principal); I10 Essential (primary) hypertension; Z85.528 Personal history of other malignant neoplasm of kidney; Z87.891 Personal history of nicotine dependence
CPT/HCPCS: 80053; 81003; 83690; 85025; 93005; 96374; 96375; J1642; J2270; J2405

== ENCOUNTER 2017-12-17 09:24 | Inpatient (IN) | payer MEDICARE ==
[2017-12-17] MEDS ORDERED: Acetaminophen 1,000 MG in Premix Bag 1 BAG IVPB PRN (09:53)
[2017-12-17] MEDS ORDERED: Promethazine HCl 25 MG/ML VIAL IM PRN (09:54)
[2017-12-17] MEDS ORDERED: Morphine 4 MG/ML VIAL IV PRN (09:54)
[2017-12-17] MEDS ORDERED: Ondansetron HCl/PF 4 MG/2 ML Vial IVP PRN (09:55)
[2017-12-17] MEDS ORDERED: Ondansetron ODT 4 MG TAB PO PRN (09:55)
[2017-12-17 10:17] VITALS: BMI 26.9
--- NOTE | 2017-12-17 10:45 | HP ---
CHIEF COMPLAINT: Diverticulitis. HISTORY OF PRESENT ILLNESS: This is a 67-year-old male who presents with a history of diverticulitis starting in September of this year. He has had colonoscopy by Dr. Tineo in late 2016 with no significa nt abnormality. He has been on antibiotics since September off and on. Every time he stops antibiotic s the symptoms recur. He has had multiple ER visits. His last CAT scan was in October. CAT scans have not shown any obvious perforation or abscess. The patient denied previous history of diverticul itis prior to this year. The patient presents today in my office with worsening pain on antibiotics in the suprapubic and right lower quadrant. The pain is described as 8/10 and sharp, does not radiat e, associated with nausea and bloating, but no vomiting. The patient has had previous right nephrect lin and postop radiation under the care of Dr. Ackerman. He is being admitted for IV antibiotics, repeat CAT scan and possible colectomy. PAST MEDICAL HISTORY: Trigeminal neuralgia, restless leg syndrome, urethral carcinoma, diverticuliti s. ALLERGIES: TESSALON PERLES. PAST SURGICAL HISTORY: 1. Cervical spine 2013. 2. Cystoscopy, right ureteroscopy, 2016. 3. Right radical nephroureterectomy 03/2017. SOCIAL HISTORY: He is a smoker, he drinks daily. No other drugs. REVIEW OF SYSTEMS: Ten system review of systems otherwise negative unless described above. PHYSICAL EXAMINATION: VITAL SIGNS: Blood pressure 171/94, heart rate is 58, respirations are 12. He is afebrile. HEENT: Sclerae are anicteric. Oropharynx clear. NECK: No lymphadenopathy. CHEST: Clear. HEART: Regular rate and rhythm. ABDOMEN: Soft, protuberant, mildly tender in the right lower quadrant and suprapubic area with guard ing with no rebound tenderness, no abdominal or inguinal hernias. Well-healed flank incision. ASSESSMENT: 1. Acute on chronic diverticulitis refractory to outpatient treatment. 2. Malignant neoplasm of trigone of urinary bladder. 3. Restless leg syndrome. 4. Trigeminal neuralgia. PLAN: Admit to hospital for IV antibiotics and CAT scan. Assuming there is no abscess to drain on C AT scan, likely plan is for left colectomy on Friday. He understands the risks and benefits of surge ry including bleeding, infection, scarring, hernia, anastomotic leak, need for more surgery. He also understands that he may require a colostomy or diverting ileostomy if he has significant inflammator y change in his abdomen at the time of surgery. Assuming his CT scan shows no abscess today we will perform colon prep tomorrow with surgery on Friday.
[2017-12-17] MEDS ORDERED: ISOVUE-370 76%-LOCM 1 ML ONE (10:47)
[2017-12-17] MEDS ORDERED: Iopamidol 370 76% 50 ML VIAL FS ONE (10:47)
[2017-12-17 10:59] LABS: #Eosinphils 0.1 thou/uL (0.0-0.7); #Lymphocytes 1.1 thou/uL (1.20-3.40); #Monocytes 0.6 thou/uL (0.11-0.59); %Basophils 0.2 % (0.0-1.0); %Eosinophils 0.9 % (0.0-10.0); %Lymphocytes 16.5 % (21.0-51.0); %Monocytes 9.1 % (0.0-10.0); %Neutrophils 73.3 % (42.0-75.0); Hemoglobin 13.7 g/dL (14.0-18.0); Mean Corpuscular HGB CONC 33.8 g/dL (32.0-36.0); Mean Corpuscular Hemoglobin 32.2 pg (27.0-31.0); Mean Corpuscular Volume 95.1 fl (80.0-94.0); Mean Platelet Volume 6.3 fL (7.4-10.4); Platelet Count 200 thou/uL (130-400); RBC Distribution Width 13.6 % (11.5-14.5); Red Blood Cell (RBC) Count 4.27 mill/uL (4.70-6.10); White Blood Cell (WBC) Count 6.8 thou/uL (4.8-10.8)
[2017-12-17 11:21] LABS: ALT (SGPT) 10 U/L (8-55); AST (SGOT) 12 U/L (5-34); Albumin 4.1 g/dL (3.4-4.8); Alkaline Phosphatase 76 U/L (40-150); Anion Gap 10 mmol/L (10-20); BUN (Urea Nitrogen) 20 mg/dL (8.4-25.7); Bilirubin, Total 0.3 mg/dL (0.2-1.2); Calc. Creatinine Clearance 65 mL/min (70-130); Calcium 9.1 mg/dL (7.8-10.44); Carbon Dioxide 29 mmol/L (23-31); Chloride 96 mmol/L (98-107); Estimated GFR-MDRD 61; Globulin 2.3 g/dL (2.4-3.5); Glucose 93 mg/dL (80-115); Lipase 12 U/L (8-78); Potassium 4.4 mmol/L (3.5-5.1); Protein, Total 6.4 g/dL (5.8-8.1); Sodium 131 mmol/L (136-145)
[2017-12-17] MEDS: D5 1/2 NS w/20 mEq KCL 1,000 ML IV SCH (13:36)
[2017-12-17] MEDS: Piperacillin/Tazobactam 3.375 GM in Sodium Chloride 0.9% 100 ML IVPB SCH ×2 (13:36→18:16)
--- NOTE | 2017-12-17 15:59 | CT ---
CT ABDOMEN WITH CONTRAST CT PELVIS WITH CONTRAST: DATE: 12/17/17. HISTORY: A 67-year-old male with history of diverticulitis. Preoperative evaluation. Right lower quadrant ab dominal pain. COMPARISON: 09/22/17. TECHNIQUE: IV injection of iodinated contrast media: 100 mL of Isovue 370. Oral contrast media: p.o. Isovue 370. FINDINGS: The right kidney is absent. There are surgical clips in the right retroperitoneum. There are boo us mildly enlarged bilateral paraaortic retroperitoneal lymph nodes. No abdominal aortic aneurysm. No free fluid or free air within the abdominal cavity or pelvic cavity. Lung bases are grossly clear . No major pathology identified involving the left kidney, adrenals, pancreas, liver, or spleen. No small bowel dilation. Multiple diverticula throughout the descending colon and sigmoid colon. The previously described region of pericolonic mild fat stranding at the junction between the descending colon and sigmoid colon, has now resolved. Anterolisthesis of L5 on S1 due to bilateral L5 pars inte rarticularis defects. The urinary bladder is decompressed on the current CT. No evidence of abscess . The appendix is difficult to visualize on the current CT. IMPRESSION: 1. Colonic diverticulosis. 2. Interval resolution of the previously demonstrated colonic diverticulitis. 3. Status post right nephrectomy. 4. Nonspecific mildly enlarged paraaortic retroperitoneal lymph nodes, unchanged. 5. Grade I spondylolisthesis at L5-S1 due to bilateral L5 spondylolysis. JANIA Velarde POS: CB
[2017-12-17] MEDS ORDERED: hydrALAZINE 20 MG/ML VIAL SLOW IVP PRN (17:28)
[2017-12-17] MEDS ORDERED: hydrOXYzine Pamoate 25 mg Capsule PO PRN (18:29)
[2017-12-17] MEDS: clonazePAM 0.5 MG TAB PO PRN (20:46)
[2017-12-17] MEDS: OXcarbazepine 300 MG TAB PO SCH (20:46)
[2017-12-17] MEDS: Pramipexole Di-HCl 0.125 MG TAB PO SCH (20:46)
[2017-12-17] MEDS: Morphine 4 MG/ML VIAL IV PRN (20:52)
[2017-12-18] MEDS: Piperacillin/Tazobactam 3.375 GM in Sodium Chloride 0.9% 100 ML IVPB SCH ×4 (00:34→18:02)
[2017-12-18] MEDS: Morphine 4 MG/ML VIAL IV PRN ×3 (04:56→21:47)
[2017-12-18] MEDS: D5 1/2 NS w/20 mEq KCL 1,000 ML IV SCH ×3 (04:59→18:05)
[2017-12-18] MEDS: OXcarbazepine 300 MG TAB PO SCH ×2 (08:33→21:46)
--- NOTE | 2017-12-18 10:52 | PDOC.GSPN ---
Surgery Progress Note: Subj - Subjective Narrative: Still having lower abdominal pain. No nausea. complaining of loose stools after CT yesterday Surgery Progress Note: Obj - Vital signs Vital signs: Vital Signs - Most Recent Temp Pulse Resp BP Pulse Ox 97.4 F L 50 L 18 170/75 H 97 12/18/17 10:14 12/18/17 10:14 12/18/17 10:14 12/18/17 07:20 12/18/17 07:20 - Physical Exam General: no distress Cardiovascular: regular rate and rhythm Respiratory: clear to auscultation Abdomen: soft, nondistended, tender (suprapubic and right lower quadrant) Surgery Progress Note: Results - Labs Result Diagrams: 12/17/17 10:49 12/17/17 10:49 Surgery Progress Note: A/P - Problem (1) Diverticulitis Current Visit: Yes Code(s): K57.92 - DVTRCLI OF INTEST, PART UNSP, W/O PERF OR ABSCESS W/O BLEED Status: Acute Assessment and Plan: acute on chronic. Intractable daily symptoms. No abscess on CT scan. Plan elective left colectomy tomorrow. Prep today
[2017-12-18] MEDS ORDERED: GoLYTELY 4,000 ml Bottle PO SCH (11:00)
[2017-12-18] MEDS ORDERED: metroNIDAZOLE 500 MG TAB PO SCH (12:00)
[2017-12-18] MEDS: Neomycin 500 mg Tablet PO SCH ×3 (13:09→18:07)
[2017-12-18] MEDS: metroNIDAZOLE 500 MG TAB PO SCH ×2 (13:10→18:02)
[2017-12-18] MEDS ORDERED: ePHEDrine/0.9% NaCl/PF SYRINGE 50 mg/10 ml ONE (17:03)
[2017-12-18] MEDS ORDERED: Lidocaine 1% PF 5 ML VIAL ONE (17:03)
[2017-12-18] MEDS ORDERED: PROPOFOL 200 MG/20 ML VIAL ONE (17:03)
[2017-12-18] MEDS ORDERED: PHENYLEPHRINE-NS 100 MCG/ML 10 ML SYRINGE ONE (17:03)
[2017-12-18] MEDS ORDERED: Glycopyrrolate 0.2 MG/ML 5 ML SYRINGE ONE (17:03)
[2017-12-18] MEDS ORDERED: Dexamethasone 20 MG/5 ML VIAL ONE (17:03)
[2017-12-18] MEDS: clonazePAM 0.5 MG TAB PO PRN (21:46)
[2017-12-18] MEDS: Pramipexole Di-HCl 0.125 MG TAB PO SCH (21:46)
[2017-12-19] MEDS: Piperacillin/Tazobactam 3.375 GM in Sodium Chloride 0.9% 100 ML IVPB SCH ×5 (00:20→23:29)
[2017-12-19] MEDS: OXcarbazepine 300 MG TAB PO SCH ×2 (08:52→20:40)
[2017-12-19] MEDS: D5 1/2 NS w/20 mEq KCL 1,000 ML IV SCH (10:16)
[2017-12-19] MEDS ORDERED: Midazolam HCl 2 mg/2 ml Vial ONE ×2 (10:57→11:37)
[2017-12-19] MEDS ORDERED: Fentanyl 250 MCG/5 ML VIAL ONE (10:57)
[2017-12-19] MEDS ORDERED: Promethazine HCl 25 MG/ML VIAL ONE (11:07)
[2017-12-19] MEDS ORDERED: Bupivacaine HCl 0.5%/Epinephrine 1:200,000/PF 30 ml Vial ONE (11:09)
[2017-12-19] MEDS ORDERED: Dexamethasone 4 mg/ml Vial ONE (11:37)
[2017-12-19] MEDS ORDERED: Fentanyl 100 MCG/2 ML VIAL ONE ×2 (11:37→15:40)
[2017-12-19] MEDS ORDERED: Bupivacaine/Epinephrine 0.25% 30 ML VIAL ONE (11:40)
[2017-12-19] MEDS ORDERED: Ondansetron HCl/PF 4 MG/2 ML Vial IVP PRN ×2 (15:03→15:42)
[2017-12-19] MEDS ORDERED: Promethazine HCl 25 MG/ML VIAL IM PRN ×2 (15:03→15:42)
[2017-12-19] MEDS ORDERED: Promethazine HCl 25 MG/ML VIAL SLOW IVP PRN (15:03)
[2017-12-19] MEDS ORDERED: Ondansetron ODT 4 MG TAB ONE (15:26)
[2017-12-19] MEDS ORDERED: Fentanyl 100 MCG/2 ML VIAL SLOW IVP PRN (15:42)
[2017-12-19] MEDS: Sodium Chloride 0.9% 1,000 ML IV SCH (18:09)
[2017-12-19] MEDS: Acetaminophen 1,000 MG in Premix Bag 1 BAG IVPB SCH ×2 (18:20→23:21)
--- NOTE | 2017-12-19 18:54 | OP ---
DATE OF SURGERY: 12/19/2017 PREOPERATIVE DIAGNOSIS: Acute on chronic diverticulitis. POSTOPERATIVE DIAGNOSES: Acute on chronic diverticulitis. PROCEDURE: Laparoscopic left colectomy with splenic flexure mobilization and low pelvic anastomosis. SURGEON: Colin Ballard M.D. ANESTHESIA: General. ESTIMATED BLOOD LOSS: 100 mL. COMPLICATIONS: None. FINDINGS: Acute on chronic diverticulitis, but no perforation, peritonitis or purulence. TECHNIQUE: The patient was taken to the operating room and placed supine on the table. After genera l anesthetic was obtained, the abdomen was prepped and draped in a sterile fashion. A Rondon catheter had been placed. Left subcostal 5-mm Optiview trocar was placed in the usual fashion without injury and high-flow pneumoperitoneum was obtained. The 5-mm ports were placed in the left abdomen, suprap ubic and in the right upper abdomen. A 12-mm port was placed in the right lower quadrant. The patie nt was placed in Trendelenburg position. Small bowel was pulled out of the pelvis, exposing the medi al aspect of the sigmoid colon mesentery. The colon mesentery was incised using peritoneum at the ba se of the inferior mesenteric artery. It was incised all the way down to the upper rectum. A window was made through the mesentery from a medial to lateral fashion and the left ureter was found and ex cluded from the rest of the dissection. A white load of the Shandon stapler was used to fire across the base of the inferior mesenteric artery. Laparoscopic LigaSure was then used to take down the mes entery into the pelvis. Circumferential dissection performed down to the upper rectum. The splenic flexure was then mobilized in the usual fashion by taking down all lateral attachments. Again, the l eft ureter was found and excluded from the dissection. Splenic flexure was taken down. The greater omentum was taken off of the transverse colon to allow the splenic flexure to reach down towards the pelvis. Shandon laparoscopic stapling device was used to fire across the upper rectum. An incision made in the left lower quadrant and the small Tom wound retractor was placed through a muscle spli tting incision. The proximal staple line was brought out through this and an area just proximal to t he splenic flexure. Enterotomy was made and 31 EEA anvil passed proximally. Stapler was used to fir e just distal to this. Colon specimen was sent to Pathology for final diagnosis. The colon with the anvil was placed back down into the abdominal cavity. The Tom wound retractor was spun and clamp ed in order to regain pneumoperitoneum. The base for the 31 EEA is brought up through the anus on th e antimesenteric surface of the rectum below, connected to the anvil from above. Stapler is tightene d down into the green zone and fired. There were two good rings of tissue. The anastomosis tested b y insufflation through the rectum under saline without evidence of air leakage. The staple line does not appear ischemic. All instrument counts, needle counts, lap counts were correct. There was an a robert in the small bowel mesentery that had some bleeding. The Tom retractor was unspun in order, s o this area small bowel could be brought up and silk suture was used to oversew this area of the mese ntery that was bleeding. GraNee needle and 0 Vicryl ties used to close the fascial defect at the 12- mm port site in the right lower quadrant. All ports are removed under camera visualization. The mus ravi splitting incision in the left lower quadrant, fascia was closed anterior and posterior using PDS suture. Subcutaneous tissues were all irrigated and closed using 3-0 Vicryl, 4-0 Monocryl, and Derm abond. The patient was en route to recovery in stable condition. All instrument counts, needle coun ts, lap counts are correct.
[2017-12-19] MEDS: Famotidine 20 MG TAB PO SCH ×2 (20:38→20:39)
[2017-12-19] MEDS: Pramipexole Di-HCl 0.125 MG TAB PO SCH (20:40)
[2017-12-19] MEDS: clonazePAM 0.5 MG TAB PO PRN (20:40)
[2017-12-19] MEDS: Fentanyl 100 MCG/2 ML VIAL SLOW IVP PRN (20:43)
[2017-12-19] MEDS ORDERED: Famotidine/PF 20 mg/2ml Vial SLOW IVP SCH (21:00)
[2017-12-20] MEDS: Acetaminophen 1,000 MG in Premix Bag 1 BAG IVPB SCH ×2 (06:04→12:17)
[2017-12-20] MEDS: Piperacillin/Tazobactam 3.375 GM in Sodium Chloride 0.9% 100 ML IVPB SCH ×2 (06:04→12:17)
[2017-12-20] MEDS: Sodium Chloride 0.9% 1,000 ML IV SCH (06:05)
[2017-12-20] MEDS ORDERED: Activase 2 MG VIAL CATH SCH ×2 (06:45→09:45)
[2017-12-20] MEDS ORDERED: Sterile Water 10 ML VIAL IVP SCH ×3 (06:45→09:45)
[2017-12-20] MEDS: OXcarbazepine 300 MG TAB PO SCH ×2 (08:55→21:15)
[2017-12-20] MEDS: Fentanyl 100 MCG/2 ML VIAL SLOW IVP PRN (09:00)
[2017-12-20 12:41] LABS: #Eosinphils 0.1 thou/uL (0.0-0.7); #Lymphocytes 1.3 thou/uL (1.20-3.40); #Monocytes 1.2 thou/uL (0.11-0.59); #Neutrophils 10.7 thou/uL (1.40-6.50); %Basophils 0.1 % (0.0-1.0); %Eosinophils 0.6 % (0.0-10.0); %Lymphocytes 10.1 % (21.0-51.0); %Monocytes 8.6 % (0.0-10.0); %Neutrophils 80.6 % (42.0-75.0); Hemoglobin 10.9 g/dL (14.0-18.0); Mean Corpuscular HGB CONC 34.1 g/dL (32.0-36.0); Mean Corpuscular Hemoglobin 31.8 pg (27.0-31.0); Mean Corpuscular Volume 93.4 fl (80.0-94.0); Mean Platelet Volume 6.5 fL (7.4-10.4); Platelet Count 187 thou/uL (130-400); RBC Distribution Width 13.6 % (11.5-14.5); Red Blood Cell (RBC) Count 3.43 mill/uL (4.70-6.10); White Blood Cell (WBC) Count 13.3 thou/uL (4.8-10.8)
[2017-12-20 13:00] LABS: Anion Gap 14 mmol/L (10-20); BUN (Urea Nitrogen) 14 mg/dL (8.4-25.7); Calc. Creatinine Clearance 62 mL/min (70-130); Calcium 8.5 mg/dL (7.8-10.44); Carbon Dioxide 21 mmol/L (23-31); Chloride 99 mmol/L (98-107); Estimated GFR-MDRD 58; Glucose 151 mg/dL (80-115); Potassium 3.7 mmol/L (3.5-5.1); Sodium 130 mmol/L (136-145)
[2017-12-20] MEDS: traMADol HCl 50 MG TAB PO PRN ×2 (16:35→21:20)
[2017-12-20] MEDS: Acetaminophen 500 MG TAB PO SCH (17:48)
[2017-12-20] MEDS: Ketorolac Tromethamine 30 MG/ML VIAL IVP SCH (17:49)
--- NOTE | 2017-12-20 18:21 | PRG ---
DATE OF SERVICE: 12/20/2017 SUBJECTIVE: Postoperative day #1, laparoscopic sigmoid colon resection. Patient does complain of in creased pain this afternoon, assuming that this is due to tap block resolution. OBJECTIVE: VITAL SIGNS: Temperature 97.4 degrees, 69, 150/73. LUNGS: Clear to auscultation. CARDIAC: Regular rate and rhythm without murmur or gallop. ABDOMEN: Soft. Mild tenderness, voluntary guarding, but otherwise soft. Bowel sounds present. Joana gical wounds look healthy. LABORATORY DATA: White count 13, hemoglobin 10.9. Basic metabolic profile was normal. ASSESSMENT AND PLAN: Doing well post left colon resection. Advance diet slowly. He has voided afte r his Rondon was removed. We will saline lock him, advance him to full liquids, give him oral analges ics.
[2017-12-20] MEDS: clonazePAM 0.5 MG TAB PO PRN (21:16)
[2017-12-20] MEDS: Pramipexole Di-HCl 0.125 MG TAB PO SCH (21:17)
[2017-12-20] MEDS: Famotidine 20 MG TAB PO SCH (21:17)
[2017-12-21] MEDS: Acetaminophen 500 MG TAB PO SCH ×5 (00:29→22:59)
[2017-12-21] MEDS: Ketorolac Tromethamine 30 MG/ML VIAL IVP SCH ×4 (00:30→17:05)
--- NOTE | 2017-12-21 08:46 | EKG ---
Test Reason : PREOP Blood Pressure : / mmHG Vent. Rate : 052 BPM Atrial Rate : 052 BPM P-R Int : 206 ms QRS Dur : 082 ms QT Int : 454 ms P-R-T Axes : 038 -09 011 degrees QTc Int : 422 ms Sinus bradycardia Otherwise normal ECG When compared with ECG of 23-NOV-2017 09:07, (Unconfirmed) No significant change was found Confirmed by EMELI BALDERAS, ROSE ([id number]) on 12/21/2017 8:46:26 AM Referred By: CHELLY Confirmed By:ROSE SAINZ MD
[2017-12-21] MEDS: Famotidine 20 MG TAB PO SCH ×2 (09:21→22:55)
[2017-12-21] MEDS: OXcarbazepine 300 MG TAB PO SCH ×2 (09:22→22:54)
[2017-12-21] MEDS: traMADol HCl 50 MG TAB PO PRN ×3 (09:23→22:54)
[2017-12-21] MEDS: Ondansetron ODT 4 MG TAB PO PRN (17:31)
--- NOTE | 2017-12-21 19:20 | PRG ---
DATE OF SERVICE: 12/21/2017 SUBJECTIVE: Mr. Prado is doing well today. He states he is not walking as much today he was yesterd ay. OBJECTIVE: VITAL SIGNS: Temperature 97.3 degrees, 61, 163/72. LUNGS: Clear to auscultation. CARDIAC: Regular rate and rhythm without murmur or gallop. ABDOMEN: Soft. He has voluntary guarding, but his abdomen is actually soft. He has bowel sounds pr esent. He reports some nausea. This occurred this evening, but otherwise is doing well. He is tole rating his liquids. LABORATORY DATA: No laboratories today. ASSESSMENT AND PLAN: Doing well overall, continue diet as present. Hopefully, we will feel better t omorrow and that he can advance his diet. He is not ready for discharge home today. Expect possible discharge home tomorrow.
[2017-12-21] MEDS: clonazePAM 0.5 MG TAB PO PRN (22:54)
[2017-12-21] MEDS: Pramipexole Di-HCl 0.125 MG TAB PO SCH (22:54)
[2017-12-22] MEDS: Ketorolac Tromethamine 30 MG/ML VIAL IVP SCH ×3 (01:29→12:14)
[2017-12-22] MEDS: Acetaminophen 500 MG TAB PO SCH ×2 (05:55→12:13)
[2017-12-22] MEDS: Famotidine 20 MG TAB PO SCH (08:18)
[2017-12-22] MEDS: OXcarbazepine 300 MG TAB PO SCH (08:19)
--- NOTE | 2017-12-22 10:35 | DIS ---
DATE OF ADMISSION: 12/17/2017 DATE OF DISCHARGE: 12/22/2017 ADMITTING DIAGNOSIS: Acute on chronic diverticulitis. DISCHARGE DIAGNOSIS: Acute on chronic diverticulitis. PROCEDURES: Left colectomy laparoscopic with splenic flexure mobilization and pelvic anastomosis by Dr. Ballard without complication. CONDITION AT DISCHARGE: Improved. STAFF: Dr. Colin Ballard. HOSPITAL COURSE: The patient was admitted with severe diverticulitis and underwent repeat CT scan wh ich showed no obvious abscess. He then had colon prep done in the hospital left colectomy, laparosco pic. Postop course has been uneventful. He is noting some bloating this morning and mild nausea, bu t he has had a bowel movement, he is passing gas, urinating without difficulty. He is afebrile and h is vital signs are stable. Wounds are healing well with a small amount of ecchymoses but no infectio n. He is being discharged home. He will follow up with me in 2 weeks. Prescriptions given for Norc o and Zofran. Those were called into his pharmacy in [place]. Patient returned to see me in 2 w eeks.
[2017-12-22 14:30] VITALS: BP 146/66; TEMP 98.2
[2017-12-22] MEDS: Ondansetron ODT 4 MG TAB PO PRN (14:51)
--- NOTE | 2017-12-24 15:56 | PQF ---
SHANE SURESH BRYAN DAVID MD [id number] [facility]- [id number] CLINICAL DOCUMENTATION CLARIFICATION FORM: POST DISCHARGE Addendum to original discharge summary date: ____ Late entry note date: __ DATE: 12/24/2017 ATTN: DR. SPAULDING Please exercise your independent, professional judgment in responding to the clarification form. Clinical indicators are provided on the bottom of this form for your review ___ Final Diagnosis on the Pathology report: CHRONIC DIVERTICULOSIS ___ Progress Notes indicate: DIVERTICULITIS Clarification of Pathology report: Please check appropriate box(s): [ ] Agree w the pathology finding of: [ ] Other explanation of pathology findings (please specify) [ x ] Other diagnosis __ chronic diverticulitis [ ] Unable to determine For continuity of documentation, please document condition throughout progress notes and discharge summary. Thank You. CLINICAL INDICATORS - SIGNS/ SYMPTOMS / LABS: H&P - ACUTE ON CHRONIC DIVERTICULITIS PN - ACUTE ON CHRONIC DIVERTICULITIS OP REPORT - ACUTE ON CHRONIC DIVERTICULITIS PATH REPORT - CHRONIC DIVERTICULOSIS DS - ACUTE ON CHRONIC DIVERTICULITIS RISK FACTORS: MALIGNANT NEOPLASM TRIGONE URINARY BLADDER TRIGEMINAL NEURALGIA TREATMENTS: SURGERY (This form is maintained as a part of the permanent medical record) 2014 [employer] All Rights Reserved Jazmin Edge, DANNIE, [email or web address] [phone] [id number]
== END 2017-12-22 15:00 | disposition home or self-care (01) | DRG 331 ==
LOC: SJJU 09:24
PROVIDERS: ADMIT Surgery; ATTEND Surgery
PROC: 0DTG4ZZ Resection of Left Large Intestine, Percutaneous Endoscopic Approach (ICD-10-PCS; principal; 2017-12-19)
PROC: 3E0T3BZ Introduction of Anesthetic Agent into Peripheral Nerves and Plexi, Percutaneous Approach (ICD-10-PCS; 2017-12-19)
DX: K57.92 Diverticulitis of intestine, part unspecified, without perforation or abscess without bleeding (principal); C67.0 Malignant neoplasm of trigone of bladder; F17.210 Nicotine dependence, cigarettes, uncomplicated; G25.81 Restless legs syndrome; G50.0 Trigeminal neuralgia
CPT/HCPCS: 36415; 74177; 80048; 80053; 83690; 85025; 88307; 93005; 93010; A4216; J0131; J0670; J1100; J1642; J1885; J2001; J2250; J2270; J2543; J2550; J2704; J2997; J3010; J7050; Q0162